=== PATIENT | female | born 1975 | race Caucasian/White ===

== ENCOUNTER 2016-07-17 01:29 | Inpatient (IN) | payer OTHER ==
[2016-07-17] MEDS ORDERED: TERBUTALINE SULFATE 1 MG/ML VIAL IV PRN (04:12)
[2016-07-17] MEDS ORDERED: OXYTOCIN/RINGERS LACTATE 1,000 ML IV PRN (04:12)
[2016-07-17] MEDS ORDERED: LIDOCAINE 1% 30 ML SDV SC PRN (04:12)
[2016-07-17] MEDS ORDERED: LR 1,000 ML IV PRN (04:12)
[2016-07-17] MEDS ORDERED: EPSOM SALT 454 GM TP PRN (04:12)
[2016-07-17] MEDS ORDERED: OLIVE OIL 118 ML BTL MISC PRN (04:12)
[2016-07-17] MEDS ORDERED: AMMONIA AROMATIC 1 EACH AMP IH ONE (04:21)
[2016-07-17] MEDS ORDERED: OLIVE OIL 118 ML BTL ONE (04:21)
[2016-07-17] MEDS ORDERED: LIDOCAINE 1% 30 ML SDV ONE (04:21)
[2016-07-17] MEDS ORDERED: OXYTOCIN 10 UNIT/ML VIAL ONE (04:22)
[2016-07-17] MEDS ORDERED: MISOPROSTOL 200 MCG TAB ONE (04:22)
[2016-07-17] MEDS ORDERED: TERBUTALINE SULFATE 1 MG/ML VIAL ONE (04:22)
[2016-07-17 04:46] LABS: % IMMATURE GRANULYOCYTES 0.4 % (0.0-1.1); ABSOLUTE IMMATURE GRANULOCYTES 0.05 10^3/uL (0.00-0.10); ADD DIFF? NO; ADD MORPH? NO; ADD SCAN? NO; ATYPICAL LYMPHOCYTE FLAG 0 (0-99); FRAGMENT RBC FLAG 0 (0-99); HEMATOCRIT 35.6 % (38.0-47.0); HEMOGLOBIN 12.2 g/dL (12.6-16.3); LEFT SHIFT FLG 0 (0-99); LIPEMIA HEMOLYSIS FLAG 90 (0-99); MEAN CELL HEMOGLOBIN 29.9 pg (27.9-34.1); MEAN CELL HEMOGLOBIN CONCENTR. 34.3 g/dL (32.4-36.7); MEAN CELL VOLUME 87.3 fL (81.5-99.8); MEAN PLATELET VOLUME 11.3 fL (8.7-11.7); PLATELET CLUMPS FLAG 0 (0-99); PLATELET COUNT 184 10^3/uL (150-400); RED BLOOD CELL COUNT 4.08 10^6/uL (4.18-5.33); RED CELL DISTRIBUTION WIDTH 13.5 % (11.5-15.2)
--- NOTE | 2016-07-17 05:37 | PDGENHP ---
History and Physical - Chief Complaint contractions - History of Present Illness Pt is a 40 y/o A1 female at 38+6 weeks EGA who presented with contractions q4-8 minutes that have slowly increased in frequency and intensity. She was admitted with active contractions and slight cervical change from 3/50/-2 to 3/C /-1. She has now progressed to 7-8cm dilation. Nitrous oxide working well for pain. No c/o bleeding or LOF. History Information - Allergies/Home Medication List Allergies/Adverse Reactions: No Known Allergies Allergy (Unverified 07/17/16 04:12) I have personally reviewed and updated: family history, medical history, social history, surgical history Past Medical History: pyelonephritis - Surgical History Reports: no pertinent surgical hx - Social History Smoking Status: Never smoked Alcohol Use: Rarely Drug Use: None Review of Systems ROS: 10pt was reviewed & negative except for what was stated in HPI & below Physical Exam Constitutional: uncomfortable (w/ contractions) Cardiovascular: regular rate and rhythym Respiratory: no respiratory distress Gastrointestinal: soft, non-tender abdomen Genitourinary: other (cx 7-8/C/0, AROM completed with clear fluid noted.) Skin: warm Lab Data & Imaging Review 07/17/16 04:20 WBC 11.73 10^3/uL (3.80-9.50) H 07/17/16 04:20 RBC 4.08 10^6/uL (4.18-5.33) L 07/17/16 04:20 Hgb 12.2 g/dL (12.6-16.3) L 07/17/16 04:20 Hct 35.6 % (38.0-47.0) L 07/17/16 04:20 MCV 87.3 fL (81.5-99.8) 07/17/16 04:20 MCH 29.9 pg (27.9-34.1) 07/17/16 04:20 MCHC 34.3 g/dL (32.4-36.7) 07/17/16 04:20 RDW 13.5 % (11.5-15.2) 07/17/16 04:20 Plt Count 184 10^3/uL (150-400) 07/17/16 04:20 MPV 11.3 fL (8.7-11.7) 07/17/16 04:20 Neut % (Auto) 80.6 % (39.3-74.2) H 07/17/16 04:20 Lymph % (Auto) 13.8 % (15.0-45.0) L 07/17/16 04:20 [place] % (Auto) 4.3 % (4.5-13.0) L 07/17/16 04:20 Eos % (Auto) 0.5 % (0.6-7.6) L 07/17/16 04:20 Baso % (Auto) 0.4 % (0.3-1.7) 07/17/16 04:20 Nucleat RBC Rel Count 0.0 % (0.0-0.2) 07/17/16 04:20 Absolute Neuts (auto) 9.44 10^3/uL (1.70-6.50) H 07/17/16 04:20 Absolute Lymphs (auto) 1.62 10^3/uL (1.00-3.00) 07/17/16 04:20 Absolute Monos (auto) 0.51 10^3/uL (0.30-0.80) 07/17/16 04:20 Absolute Eos (auto) 0.06 10^3/uL (0.03-0.40) 07/17/16 04:20 Absolute Basos (auto) 0.05 10^3/uL (0.02-0.10) 07/17/16 04:20 Absolute Nucleated RBC 0.00 10^3/uL (0-0.01) 07/17/16 04:20 Immature Gran % 0.4 % (0.0-1.1) 07/17/16 04:20 Immature Gran # 0.05 10^3/uL (0.00-0.10) 07/17/16 04:20 Patient ABO/Rh A NEGATIVE 07/17/16 04:20 Antibody Screen POSITIVE 07/17/16 04:20 Antibody Identification SIG ANTIBODIES RULED OUT 07/17/16 04:20 Assessment & Plan Assessment: 40 y/o A1 female at 38+6 weeks EGA in active labor Plan: 1) Labor: progressing well, anticipate 2) status reassuring 3) Pain: Nitrous oxide working well 4) GBS negative 5) RH negative, plan rhogam PP
--- NOTE | 2016-07-17 06:12 | OBPROG ---
OBG Progress Note Assessment/Plan: Assessment: 40 y/o A1 female at 38+6 weeks EGA in active labor Plan: - status reassuring - Labor progressing, anticipate - Pain controlled w/ nitrous oxide - GBS neg - RH neg 07/17/16 06:11 Subjective: Pt feels more pressure, pain w/ contractions. Objective: 07/17/16 04:20 Patient ABO/Rh A NEGATIVE 07/17/16 04:20 - SVE Dilation (cm): 9 Effacement (%): 100 Station: +1 Current Contraction Pattern: Regular FHR (bpm): 140 FHR Pattern Variability: Moderate FHR Category: 2 (early decels w/ contractions) Amniotic Fluid Color: Clear ICD10 Worksheet Patient Problems: Problems Problem Status Onset Labor established Acute - ICD10 Problem Qualifiers (1) Labor established
[2016-07-17] MEDS: IBUPROFEN 600 MG TAB PO PRN ×3 (06:56→18:45)
[2016-07-17] MEDS ORDERED: HYDROCORTISONE 0.5% CREAM TP PRN (06:58)
[2016-07-17] MEDS ORDERED: HYDROCODONE/APAP 5/325 TAB PO PRN (06:58)
[2016-07-17] MEDS ORDERED: DOCUSATE SODIUM 100 MG CAP PO PRN (06:58)
[2016-07-17] MEDS ORDERED: SIMETHICONE 80 MG TAB CHEW PO PRN (06:58)
[2016-07-17] MEDS ORDERED: ACETAMINOPHEN 325 MG TAB PO PRN (06:58)
--- NOTE | 2016-07-17 07:02 | OBPROC ---
- Labor and Delivery Onset of Contractions Date: 07/16/16 Onset of Contractions Time: 23:00 Onset of Contractions Type: Spontaneous Rupture of Membranes Date: 07/17/16 Rupture of Membranes Time: 05:22 Rupture of Membranes Type: Artificial Amniotic Fluid Color: Clear Dilation Complete Time: 06:22 Delivery Type: Spontaneous Placenta Delivery Date: 07/17/16 Placenta Delivery Time: 06:37 Episiotomy/Laceration: 2nd Degree Repair: 2-0, Vicryl EBL: 250 cc Complications: None - Medications Labor Augmentation/Induction Meds Used: None Anesthesia: Local (Specify), Other (Specify) (Nitrous oxide) - Info Infant A Delivery Date: 07/17/16 Delivery Time: 06:30 Sex of Infant: Male Score (1 Min): 8 Score (5 Min): 9 (Patient pushed really well and delivered easily. Baby delivered in the vertex presentation, ISHA position, placed on maternal abdomen. Cord clamped and cut x 2 after 2 minutes. Cord blood obtained. 2nd degree repaired and hemostatic under local anesthetic. Uterus firm. Cervix intact. Mother and baby in stable condition.)
[2016-07-17 21:34] VITALS: RESP 16
[2016-07-18] MEDS: IBUPROFEN 600 MG TAB PO PRN ×3 (01:05→12:55)
[2016-07-18 01:12] VITALS: BP 109/71; PULSE 54; TEMP 97.8; O2SAT 92
--- NOTE | 2016-07-18 12:06 | OBPROG ---
OBG Progress Note Assessment/Plan: Assessment: 40 y/o A1 female PPD#1 s/p - doing well, ready for discharge home Plan: - Discharge home - RX declined, OTC meds for pain - F/U in 6 weeks - Bleeding/pain/fever precautions 07/18/16 12:04 Subjective: Pt doing well, no complaints. Ambulating, voiding, passing flatus, tolerating regular diet, lochia diminishing, and breast feeding progressing. Objective: 07/17/16 04:20 Patient ABO/Rh A NEGATIVE 07/17/16 08:15 Temp Pulse Resp BP Pulse Ox 36.6 C 54 L 16 109/71 92 07/18/16 01:00 07/18/16 01:00 07/18/16 01:00 07/18/16 01:00 07/18/16 01:00 Uterine Position/Fundal Height: Umbilicus -1 Uterine Tone: Firm ICD10 Worksheet Patient Problems: Problems Problem Status Onset Labor established Acute (spontaneous vaginal delivery) Acute - ICD10 Problem Qualifiers (1) Labor established (2) (spontaneous vaginal delivery)
== END 2016-07-18 15:55 | disposition home or self-care (01) | DRG 775 ==
LOC: OBSVTOIN 01:29 → FLD 01:29 → FOB 08:51
PROVIDERS: ADMIT Obstetrics & Gynecology; ATTEND Obstetrics & Gynecology
PROC: 0KQM0ZZ Repair Perineum Muscle, Open Approach (ICD-10-PCS; principal; 2016-07-17)
PROC: 10907ZC Drainage of Amniotic Fluid, Therapeutic from Products of Conception, Via Natural or Artificial Opening (ICD-10-PCS; principal; 2016-07-17)
PROC: 10E0XZZ Delivery of Products of Conception, External Approach (ICD-10-PCS; principal; 2016-07-17)
DX: O70.1 Second degree perineal laceration during delivery (principal); Z37.0 Single live birth; Z3A.38 38 weeks gestation of pregnancy
CPT/HCPCS: J2590; J3105